=== PATIENT | female | born 1935 | race Two or more races ===

== ENCOUNTER 2025-03-29 12:20 | Inpatient (IN) | payer OTHER ==
[~2025-03-29] VITALS: Ht 152.4 cm; Wt 72.6 kg
[2025-03-29] MEDS ORDERED: SYNTHROID100 MCG PO (13:13)
[2025-03-29] MEDS ORDERED: DIALYVITE TABL1 EACH (13:14)
[2025-03-29] MEDS ORDERED: DILTIAZEM ER120 M2 (13:14)
[2025-03-29] MEDS ORDERED: TAMSULOSIN HCL0.4 MG PO (13:14)
[2025-03-29] MEDS ORDERED: K2 PLUS D3 TAB1 EACH PO (13:15)
--- NOTE | 2025-03-29 13:15 | NUR ---
PTE ALERTA Y ACTIVA LLEGA A ER EN AMBULANCIA. ACOMPANANTE DE PTE REFIERE QUE JUSTO TUVO AMADA CAIDA Y PRESENTA FRACTURA DE FEMUR IZQ. SE ENE S/V Y SE UBICA PTE EN RONN.
[2025-03-29] MEDS ORDERED: 0.9 % SODIUM CHLORIDE 1,000 ML IV ONE (14:00)
[2025-03-29] MEDS ORDERED: DEXAMETHASONE SODIUM PHOSPHATE 4 MG/ML VIAL IV ONE (14:00)
[2025-03-29] MEDS ORDERED: MORPHINE SULFATE 2 MG/ML SYRINGE IV ONE (14:00)
--- NOTE | 2025-03-29 14:53 | NUR ---
SE ORIENTA PTE SOBRE TRATAMIENTO MEDICO Y SE EJECUTA EN NGUYEN TOTALIDAD
[2025-03-29 15:07] LABS: BASO % 0.2 % (0.1-1.2); EOS # 0.01 (0.04-0.54); EOS % 0.1 % (0.7-7.0); LYMPH # 1.33 (1.18-3.74); LYMPH % 11.0 % (19.3-53.1); MEAN PLATELET VOLUME 10.80 fl (9.4-12.4); MONO # 0.25 (0.24-0.82); MONO % 2.1 % (4.7-12.5); NEUT # 10.43 (1.56-6.13); NEUT % 86.4 % (34.0-71.1); RED CELL DISTRIBUTION WIDTH 13.8 % (11.6-14.4)
[2025-03-29 15:21] LABS: INR 0.99
[2025-03-29 15:50] LABS: ALT/SGPT 22.0 U/L (12-78); AST/SGOT 21.0 U/L (15-37); BILIRUBIN TOTAL 0.43 mg/dL (0.3-1.2); BUN CREA RATIO 34.0 (7.0-25.0); CREATININE SERUM 0.82 mg/dL (0.55-1.02); GFR 65.64; GLOBULINA 3.8 G/DL (2.4-3.5); GLUCOSE FASTING 147.0 mg/dL (65-100); OSMOLALITY SERUM 291.0 MOSM/KG (275-295)
[2025-03-29 16:03] LABS: URINE APPEARANCE Clear; URINE BILIRRUBIN Negative (NEGATIVE); URINE BLOOD Negative; URINE COLOR Yellow; URINE GLUCOSE Negative (NEGATIVE); URINE KETONE Negative (NEGATIVE); URINE LEUKOCYTE Trace; URINE NITRATE Negative; URINE PROTEIN Negative (NEGATIVE); URINE UROBILINOGEN 0.2 E.U./dl
[2025-03-29 16:07] LABS: URINE BACTERIA 19.1 uL (0.0-1933); URINE EPITHELIAL CELLS 17.6 uL (0.0-38.8); URINE RBC 3.5 uL (0.0-20.8); URINE WBC 14.7 uL (0.0-23.2)
[2025-03-29 16:29] LABS: URINE CAST 0.00 uL (0.0-1.40)
[2025-03-29 17:03] LABS: COVID-19 AG NEGATIVE (NEGATIVE)
[2025-03-29] MEDS ORDERED: 0.9 % SODIUM CHLORIDE 1,000 ML IV SCH (19:45)
[2025-03-29] MEDS ORDERED: MORPHINE SULFATE 2 MG/ML SYRINGE IV PRN (20:00)
[2025-03-30 00:56] VITALS: BP 145/75; O2SAT 96
[2025-03-30] MEDS ORDERED: LEVOTHYROXINE SODIUM 100 MCG TABLET PO SCH (06:00)
[2025-03-30 07:00] VITALS: BP 126/55; O2SAT 96
[2025-03-30] MEDS ORDERED: LOSARTAN POTASSIUM 50 MG TABLET PO SCH (09:00)
[2025-03-30] MEDS ORDERED: DILTIAZEM HCL 60 MG TABLET PO SCH (09:00)
[2025-03-30] MEDS ORDERED: TAMSULOSIN HCL 0.4 MG CAP PO SCH (09:00)
[2025-03-30] MEDS ORDERED: BUPIVACAINE HCL/MPF 0.5% 30ML VIAL ONE (13:52)
[2025-03-30] MEDS ORDERED: LIDOCAINE HCL 1%/EPINEPHRINE 20ML VIAL IJ ONE (13:53)
[2025-03-30] MEDS ORDERED: ISOPROPYL ALCOHOL 30 ML OUNCE TOP ONE (13:53)
[2025-03-30] MEDS ORDERED: ENALAPRILAT DIHYDRATE 1.25 MG/ML VIAL IV PRN (14:15)
[2025-03-30] MEDS ORDERED: CEFAZOLIN SODIUM 1,000 MG VIAL ONE (16:07)
[2025-03-30] MEDS ORDERED: TRAMADOL HCL 50 MG TABLET PO PRN (20:15)
[2025-03-30] MEDS ORDERED: ONDANSETRON HCL 2 MG/ML VIAL IV PRN (20:15)
[2025-03-30] MEDS ORDERED: PROMETHAZINE HCL 50 MG/ML AMPUL IM PRN (20:15)
[2025-03-30] MEDS ORDERED: SODIUM CHLORIDE 0.45 % 1,000 ML IV SCH (20:15)
[2025-03-30] MEDS ORDERED: ONDANSETRON 4 MG TAB.RAPDIS PO PRN (20:15)
[2025-03-30] MEDS ORDERED: FAMOTIDINE/PF 20 MG/2 ML VIAL IV SCH (21:00)
[2025-03-30] MEDS ORDERED: ACETAMINOPHEN 325 MG TABLET PO SCH (21:00)
[2025-03-30] MEDS ORDERED: MORPHINE SULFATE 4 MG/ML CARTRIDGE IV ONE (22:15)
[2025-03-31] MEDS ORDERED: CEFAZOLIN SODIUM 1,000 MG VIAL IV SCH (01:00)
[2025-03-31] MEDS ORDERED: CELECOXIB 200 MG CAPSULE PO SCH (01:00)
[2025-03-31 02:35] VITALS: BP 84/56; O2SAT 98
[2025-03-31 06:54] LABS: BASO % 0.3 % (0.1-1.2); EOS # 0.00 (0.04-0.54); EOS % 0.0 % (0.7-7.0); LYMPH # 1.97 (1.18-3.74); LYMPH % 8.8 % (19.3-53.1); MEAN PLATELET VOLUME 11.60 fl (9.4-12.4); MONO # 1.89 (0.24-0.82); MONO % 8.5 % (4.7-12.5); NEUT # 18.23 (1.56-6.13); NEUT % 81.9 % (34.0-71.1); RED CELL DISTRIBUTION WIDTH 14.0 % (11.6-14.4)
[2025-03-31 07:37] LABS: ALT/SGPT 50.0 U/L (12-78); AST/SGOT 68.0 U/L (15-37); BILIRUBIN TOTAL 0.45 mg/dL (0.3-1.2); BUN CREA RATIO 24.0 (7.0-25.0); CREATININE SERUM 1.47 mg/dL (0.55-1.02); GFR 33.47; GLOBULINA 2.9 G/DL (2.4-3.5); GLUCOSE FASTING 163.0 mg/dL (65-100); OSMOLALITY SERUM 298.0 MOSM/KG (275-295)
[2025-03-31 08:00] VITALS: BP 110/64; O2SAT 95
[2025-03-31] MEDS ORDERED: DILTIAZEM HCL 120 MG CAP.SR.24H PO SCH (09:00)
[2025-03-31] MEDS ORDERED: RIVAROXABAN 10 MG TAB PO SCH (09:00)
[2025-03-31] MEDS ORDERED: PANTOPRAZOLE SODIUM 40 MG TABLET.DR PO SCH (09:00)
[2025-03-31] MEDS ORDERED: ENOXAPARIN SODIUM 40 MG/0.4 ML SYRINGE SUBCUTANEO SCH (09:00)
[2025-03-31 16:00] VITALS: BP 106/71; O2SAT 97
[2025-03-31] MEDS ORDERED: AMINO ACIDS/PROTEIN HYDROLYS 30 ML BLIST.PACK PO SCH (17:00)
[2025-04-01 00:30] VITALS: BP 103/65; O2SAT 96
[2025-04-01] MEDS ORDERED: hydrALAZINE HCL 20 MG VIAL IV PRN (06:45)
[2025-04-01 08:29] VITALS: BP 108/44; O2SAT 96
[2025-04-01] MEDS ORDERED: SENNA/DOCUSATE SODIUM 1 TAB TABLET PO SCH (09:00)
[2025-04-01] MEDS ORDERED: FAMOTIDINE/PF 20 MG/2 ML VIAL IV SCH (09:00)
[2025-04-01] MEDS ORDERED: 0.9 % SODIUM CHLORIDE 1,000 ML IV SCH (15:00)
[2025-04-01 16:46] VITALS: BP 113/57; O2SAT 97
[2025-04-02 00:58] VITALS: BP 109/53; O2SAT 97
[2025-04-02 08:59] VITALS: BP 145/70; O2SAT 98
[2025-04-02] MEDS ORDERED: hydrALAZINE HCL 20 MG VIAL IV PRN (16:15)
[2025-04-02 18:30] VITALS: BP 125/58; O2SAT 97
[2025-04-03 00:30] VITALS: BP 109/63; O2SAT 96
[2025-04-03 02:20] VITALS: BP 109/63; O2SAT 96
[2025-04-03 07:55] LABS: BASO % 0.2 % (0.1-1.2); EOS # 0.67 (0.04-0.54); EOS % 4.4 % (0.7-7.0); LYMPH # 3.12 (1.18-3.74); LYMPH % 20.6 % (19.3-53.1); MEAN PLATELET VOLUME 11.70 fl (9.4-12.4); MONO # 1.03 (0.24-0.82); MONO % 6.8 % (4.7-12.5); NEUT # 9.99 (1.56-6.13); NEUT % 66.2 % (34.0-71.1); RED CELL DISTRIBUTION WIDTH 14.6 % (11.6-14.4)
[2025-04-03 08:00] VITALS: BP 133/58; O2SAT 97
[2025-04-03 08:14] LABS: ALT/SGPT 13.0 U/L (12-78); AST/SGOT 62.0 U/L (15-37); BILIRUBIN TOTAL 1.33 mg/dL (0.3-1.2); BUN CREA RATIO 55.0 (7.0-25.0); CREATININE SERUM 0.82 mg/dL (0.55-1.02); GFR 65.64; GLOBULINA 2.8 G/DL (2.4-3.5); GLUCOSE FASTING 97.0 mg/dL (65-100); OSMOLALITY SERUM 300.0 MOSM/KG (275-295)
[2025-04-03] MEDS ORDERED: CEFTRIAXONE SODIUM 2,000 MG in 0.9 % SODIUM CHLORIDE 100 ML IV SCH (12:00)
[2025-04-03] MEDS ORDERED: TRAMADOL HCL 50 MG TABLET PO PRN (12:15)
[2025-04-03] MEDS ORDERED: MORPHINE SULFATE 4 MG/ML CARTRIDGE IV PRN (12:15)
[2025-04-03 15:00] VITALS: BP 126/77; O2SAT 98
[2025-04-03] MEDS ORDERED: POLYETHYLENE GLYCOL 3350 17 GM BLIST.PACK PO SCH (17:00)
[2025-04-04 01:43] VITALS: BP 143/70; O2SAT 97
[2025-04-04 08:00] VITALS: BP 150/73; O2SAT 96
[2025-04-04] MEDS ORDERED: LOSARTAN POTASSIUM 25 MG TABLET PO SCH (10:33)
[2025-04-04 17:01] LABS: BASO % 0.4 % (0.1-1.2); EOS # 0.81 (0.04-0.54); EOS % 5.8 % (0.7-7.0); LYMPH # 3.59 (1.18-3.74); LYMPH % 25.9 % (19.3-53.1); MEAN PLATELET VOLUME 10.40 fl (9.4-12.4); MONO # 1.14 (0.24-0.82); MONO % 8.2 % (4.7-12.5); NEUT # 7.91 (1.56-6.13); NEUT % 57.2 % (34.0-71.1); RED CELL DISTRIBUTION WIDTH 15.7 % (11.6-14.4)
[2025-04-04 17:21] LABS: ALT/SGPT 19.0 U/L (12-78); AST/SGOT 49.0 U/L (15-37); BILIRUBIN TOTAL 0.48 mg/dL (0.3-1.2); BUN CREA RATIO 36.0 (7.0-25.0); CREATININE SERUM 0.84 mg/dL (0.55-1.02); GFR 63.84; GLOBULINA 3.2 G/DL (2.4-3.5); GLUCOSE FASTING 171.0 mg/dL (65-100); OSMOLALITY SERUM 297.0 MOSM/KG (275-295)
[2025-04-05 00:30] VITALS: BP 150/73; O2SAT 98
[2025-04-05 08:00] VITALS: BP 167/66; O2SAT 97
[2025-04-05] MEDS ORDERED: PERCOCET 5-3251 EACH PO (12:17)
[2025-04-05] MEDS ORDERED: SYNTHROID100 MCG PO (12:17)
[2025-04-05] MEDS ORDERED: COZAAR50 MG PO (12:17)
[2025-04-05] MEDS ORDERED: CARDIZEM60 MG PO (12:17)
[2025-04-05] MEDS ORDERED: CEFADROXIL500 MG PO (12:17)
[2025-04-05] MEDS ORDERED: XARELTO10 MG PO (12:17)
[2025-04-05 17:00] VITALS: BP 143/78
== END 2025-04-05 19:40 | disposition home health service (06) | DRG 481 ==
LOC: ER 12:20 → SURH 21:59 → MEDI 21:59 → SURH 03-30 23:41 → SURG 03-31 02:21 → SURH 03-31 20:00
PROVIDERS: Internal Medicine Nephrology; Orthopaedic Surgery; ADMIT Internal Medicine; ATTEND Internal Medicine
PROC: B246ZZZ Ultrasonography of Right and Left Heart (ICD-10-PCS; 2025-03-29)
PROC: BQ21ZZZ Computerized Tomography (CT Scan) of Left Hip (ICD-10-PCS; 2025-03-29)
PROC: 0QS736Z Reposition Left Upper Femur with Intramedullary Internal Fixation Device, Percutaneous Approach (ICD-10-PCS; principal; 2025-03-30 16:00)
PROC: 30233N1 Transfusion of Nonautologous Red Blood Cells into Peripheral Vein, Percutaneous Approach (ICD-10-PCS; 2025-03-31)
PROC: 02HV33Z Insertion of Infusion Device into Superior Vena Cava, Percutaneous Approach (ICD-10-PCS; 2025-04-01)
DX: S72.8X2A Other fracture of left femur, initial encounter for closed fracture (principal); M97.02XA Periprosthetic fracture around internal prosthetic left hip joint, initial encounter; N17.8 Other acute kidney failure; I10 Essential (primary) hypertension; E03.8 Other specified hypothyroidism; W13.3XXA Fall through floor, initial encounter; Y92.129 Unspecified place in nursing home as the place of occurrence of the external cause